=== PATIENT | female | born 1970 | race Caucasian/White ===

== ENCOUNTER 2016-12-19 23:59 | Inpatient (IN) | payer MEDICAID ==
--- NOTE | ~2016-12-19 | CT71 ---
[facility] A Service [facility] RADIOLOGY TEXT RESULTS PATIENT: AILYN ALFONSO LOCATION: [facility] PC 323-01 : 71 UNIT #: [id number] AGE: [address]: Aida Hu MD SEX: F ORDER DR: [id number] [facility] [address] [facility] [place] [facility]. [place], [place] [address] [id number] MR#: [id number] #: [id number] NAME: AILYN ALFONSO : 1970 SEX: F STUDY DATE/TIME: 12/20/2016 4:04 UNIT: CEDOF ROOM: 52333 STUDY DESCRIPTION: CT Head Wo Contrast Attending Physician: Aida Hu M.D. Ordering Physician: James Rivera D.O. Primary Care Physician: Primary Care Physician No MEDICAL IMAGING REPORT This report is preliminary unless electronic signature is present EXAM CT head, noncontrast, 12/20/2016 HISTORY 45-year-old female in the ED complaining of 1-day history of headaches, weakness and mental status changes. TECHNIQUE CT examination of the head without IV contrast. This CT examination was performed with one or more of the following radiation dose reduction techniques: automatic exposure control, adjustment of mA and/or kV according to patient size, and iterative reconstruction. FINDINGS The examination is negative. No evidence of acute intracranial hemorrhage, mass, mass effect, cerebral edema or hydrocephalus. At least mild mucosal thickening in the ethmoid and maxillary sinuses bilaterally. IMPRESSION Negative head CT examination. Dictated by... Delbert Smith M.D. THIS IS AN ELECTRONICALLY VERIFIED REPORT Delbert Smith M.D. at 12/20/2016 9:54 PM ROSA M/noreen TD: 12/20/2016 08:05 JOB #: [id number] MEDICAL IMAGING REPORT [facility] A Service [facility] RADIOLOGY TEXT RESULTS PATIENT: AILYN ALFONSO LOCATION: C3A 323-01 : 71 UNIT #: [id number] AGE: [address]: Aida Hu MD SEX: F ORDER DR: Page 1 of 1 COPY
--- NOTE | ~2016-12-19 | DS ---
Unit #: [id number] #: [id number] Patient: AILYN ALFONSO [id number] [address] [address] [id number] I MR#: [id number] NAME: AILYN ALFONSO ROOM: 323 Age: 45 Sex: F Admission Date: 12/20/2016 : 1970 Discharge Date: 12/21/2016 Attending Physician: Aida Hu M.D. Primary Care Physician: No Primary Care Physician DISCHARGE SUMMARY DISCHARGE DIAGNOSES 1. Acute kidney injury, prerenal. 2. Change in mental status secondary to metabolic encephalopathy from drug overdose. 3. Drug overdose, not intentional, with urine tox screen positive for amphetamines and opiates. 4. Hyperlipidemia. 5. Gram negative mikey urinary tract infection. 6. Hypertension, uncontrolled, most likely secondary to withdrawal. 7. History of questionable schizophrenia. 8. No suicidal ideation. CONSULTANTS Dr. Gramajo. PROCEDURES PREFORMED None. DIAGNOSTIC DATA LABORATORY: Urine culture showing Gram negative rods. Sodium 136, potassium 3.1, creatinine 0.8, AST 43, ALT 19, alkaline phosphatase 71, magnesium 1.7, white blood cell count 13.8, hemoglobin 15.0, platelets 111. Urine drug screen positive for opiates and amphetamines. Influenza A and B negative. ALLERGIES Penicillin. DISCHARGE MEDICATIONS 1. Neurontin 300 mg t.i.d. for 7 days for opiate withdrawal as per Dr. Gramajo's recommendation. 2. Clonidine 0.1 mg p.o. b.i.d. 3. Nitrofurantoin 100 mg p.o. b.i.d. HOSPITAL COURSE The patient is a 44-year-old admitted because of drug overdose. Polysubstance abuse: Amphetamines and heroin snorting. Came in with overdose with change in mental status. Currently she is withdrawing. She was started on Neurontin, trazodone, Vistaril and Requip by Dr. Gramajo. Currently she is eating. She wants to go home. The patient will be discharged on Neurontin for seven more days as per Dr. Gramajo's recommendations. [facility]. The patient understands the recommendations. Unit #: [id number] #: [id number] Patient: AILYN ALFONSO Acute kidney injury secondary to poor p.o. intake and drug abuse: The patient received IV fluids. Creatinine normal. Hypokalemia: Replaced with p.o. potassium. Hypermagnesemia: Replaced with p.o. magnesium. Gram negative mikey urinary tract infection: Cultures pending. Continue with nitrofurantoin for three days. Hypertension: Uncontrolled secondary to withdrawal. I added clonidine. I gave a prescription. The patient did receive hydralazine during hospitalization course. DISPOSITION Discharge home. FOLLOWUP 1. Follow up with family physician in one week time. 2. Follow up with [facility] outpatient within a week for heroin abuse and withdrawal. Dictated by... Raul Goodman/magda TD: 12/21/2016 11:36 JOB #: [id number] DISCHARGE SUMMARY Page 1 of 1 X Aida Hu MD X DISCHARGE SUMMARY
--- NOTE | ~2016-12-19 | HP ---
Unit #: [id number] #: [id number] Patient: AILYN ALFONSO [id number] [address] [address] [id number] I MR#: [id number] NAME: AILYN ALFONSO ROOM: 323 Age: 45 Sex: F Admission Date: 12/20/2016 : 1970 Attending Physician: Aida Hu M.D. Primary Care Physician: No Primary Care Physician HISTORY AND PHYSICAL CHIEF COMPLAINT Change in mental status. HISTORY OF PRESENT ILLNESS The patient is a 45-year-old admitted because of change in mental status. She was brought by her initially. She is lethargic and not able to provide history. Currently she is awake and oriented and explaining that she took heroin by snorting. She never used IV. Also, she might have taken amphetamines. I guess she was having change in mental status and was brought by her boyfriend. She is complaining of cough. No chest pain. She has nausea, no vomiting. No diarrhea. She has abdominal pain and generalized body pains from withdrawal. No leg swelling. No skin rash. PAST MEDICAL HISTORY 1. History of hypertension. 2. History of questionable schizophrenia which has not been confirmed. PAST SURGICAL HISTORY None. SOCIAL HISTORY Positive for smoking one pack of cigarettes per day. No alcohol. Uses heroin and amphetamines. FAMILY HISTORY Positive for hypertension. ALLERGIES None listed. CURRENT HOME MEDICATIONS Clonidine, dose to be obtained by her pharmacy. REVIEW OF SYSTEMS Currently complaining of headache and generalized body pains. Has nausea. No vomiting. Has abdominal pain. Mild diarrhea. No leg swelling. No skin rash. Complaining of dizziness. No weakness, numbness or tingling. Review of twelve point systems which are negative except as per history of present illness. PHYSICAL EXAMINATION GENERAL: The patient is a 45-year-old lying in bed, alert, arousable, oriented times 3. Unit #: [id number] #: [id number] Patient: AILYN ALFONSO VITALS: Temperature 98.3, pulse 125, respiratory rate 20, blood pressure 148/90. HEENT: Pupils equal and reactive to light and accommodation. Dry mucosa present. NECK: Supple. LUNGS: Occasional rhonchi present. Decreased breath sounds. HEART: S1 and S2. Regular rhythm. Tachycardia present. ABDOMEN: Soft and nontender. Bowel sounds present. EXTREMITIES: No pedal edema. SKIN: No rash. NEUROLOGIC: Moving all extremities. DIAGNOSTIC STUDIES IMAGING: Chest x-ray is negative. CAT scan of the head negative. LABORATORY: Influenza A and B negative. White blood cell count 22.3, hemoglobin 19.3, platelets 222. Sodium 136, potassium 3.2, creatinine 1.7, AST 28, ALT 22, alkaline phosphatase 103, total bilirubin 2.8, albumin 4.9. Urinalysis shows 1+ leukocyte esterase, 1+ protein, 1+ blood. Urine drug screen positive for amphetamines and opiates. ASSESSMENT/PLAN The patient is a 45-year-old admitted because of change in mental status. 1. Change in mental status with metabolic encephalopathy secondary to drug overdose. Currently she is alert and oriented. Monitor closely for withdrawal. 2. Acute kidney injury, most likely secondary to prerenal and poor p.o. intake. Continue with IV fluids. 3. Hemoconcentration and dehydration secondary to poor p.o. intake. Continue with IV fluids and monitor. 4. Urinary tract infection. Wait for cultures. I will start her on Levaquin 500 mg IV daily. 5. Hypertension. Currently uncontrolled. Start her on clonidine. 6. Questionable suicidal ideation in the emergency room. Currently she denies this. Currently she is on 72-hour hold and with a sitter. I am going to ask Dr. Gramajo to see. Dictated by Raul Goodman/magda TD: 12/20/2016 15:57 JOB #: [id number] Unit #: [id number] #: [id number] Patient: AILYN ALFONSO HISTORY AND PHYSICAL Page 1 of 1 X Aida Hu MD X HISTORY AND PHYSICAL
--- NOTE | ~2016-12-19 | CO ---
Unit #: [id number] #: [id number] Patient: ANALI ROSAS [id number] [facility] [address] [place], [place] [address] [id number] I MR#: [id number] NAME: ANALI ROSAS ROOM: 323 Age: 45 Sex: F Admission Date: 12/20/2016 : 1970 Attending Physician: Aida Hu M.D. Consultation Date: 12/20/2016 CONSULTATION REPORT REASON FOR CONSULTATION Opioid abuse and withdrawals, anxiety, depression. HISTORY OF PRESENT ILLNESS Ms. Anali Rosas is a 45-year-old female, seen on 12/20/2016 at [facility]. The patient was admitted on 12/20/2016 with a change in mental status. The patient was lethargic upon admission. The patient reported she took heroin by snorting, but denied any IV drug use. The patient reported that she has a history of amphetamine use also. The patient currently denied any suicidal or homicidal ideation. Denied any psychotic symptom, but reported feeling anxious, nervous, body ache, withdrawals, restlessness of her legs, mood lability, severe anxiety, trouble sleeping. The patient at this time, denied any auditory or visual hallucination or any psychotic symptom. PAST PSYCHIATRIC HISTORY Remarkable for history of depression and anxiety. No history of any inpatient treatment known at this time. The patient was assessed at [facility] in 2009. PAST MEDICAL HISTORY Remarkable for history of hypertension. MEDICATIONS Clonidine. ALLERGIES None. FAMILY HISTORY AND SOCIAL HISTORY The patient reports that she has a good support system. No history of any abuse. Denied any use of alcohol or any other drugs except for heroin. REVIEW OF SYSTEMS Complete review of systems is remarkable for restlessness of her legs, severe anxiety, agitation. MENTAL STATUS EXAMINATION General appearance, the patient dressed casually. Attention span and concentration, fair. Oriented in place and person. Mood and affect were sad and dysphoric. Speech, monotone. Thought process, coherent. Thought content, the patient denied any thoughts of harming self or others, but guarded. Recent and remote memory, fair. The patient initially was confused, but getting better. Language, able to name object, repeat Unit #: [id number] #: [id number] Patient: ANALI ROSAS phraseradha. Fund of knowledge, fair. Insight and judgment, fair to slightly impaired. DIAGNOSES Psychiatric: Opioid use disorder, severe, F11.20; delirium, resolving, F05. Secondary diagnosis: Deferred. Medical diagnosis: Acute kidney injury, change in mental status secondary to metabolic encephalopathy, drug overdose unintentional, hyperlipidemia, gram-negative mikey, urinary tract infection, history of hypertension. Stressors: Psychosocial stressors. ASSESSMENT AND PLAN 1. Supportive psychotherapy and psychoeducation provided to the patient. 2. Educated about benefits and side effects of medication and course and prognosis of illness. 3. The patient was advised Neurontin 300 mg t.i.d., Vistaril 50 mg t.i.d., and trazodone 50 mg q.h.s. p.r.n. for sleep, Requip 1 mg b.i.d. The patient was advised to follow up after this at [facility] CD-IOP program. The patient was given information. Please feel free to call if any questions telephone #[phone]. Dictated by... Raul Cox/gt TD: 12/24/2016 00:40 JOB #: [id number] CONSULTATION REPORT Page 1 of 1 X Bennie Gramajo MD X CONSULTATION REPORT
--- NOTE | ~2016-12-19 | CR72 ---
[facility] A Service of [facility] RADIOLOGY TEXT RESULTS PATIENT: AILYN ALFONSO LOCATION: [facility] 323-01 : 71 UNIT #: [id number] AGE: [address]: Aida Hu MD SEX: F ORDER DR: [id number] [facility] [address] [facility]. [place], [place] [address] [id number] MR#: [id number] #: [id number] NAME: AILYN ALFONSO : 1970 SEX: F STUDY DATE/TIME: 12/19/2016 23:51 UNIT: [facility] ROOM: STUDY DESCRIPTION: CR Chest Single View Portable Attending Physician: James Rivera D.O. Ordering Physician: James Rivera D.O. Primary Care Physician: No Primary Care Physician MEDICAL IMAGING REPORT This report is preliminary unless electronic signature is present EXAM AP portable chest 12/19/2016 HISTORY 45-year-old female in the ED complaining of 2-week history of cough, fever, flu-like symptoms. TECHNIQUE AP portable chest x-ray. FINDINGS The examination is negative. The lungs are expanded and clear. No visible pulmonary infiltrate or pleural effusion. IMPRESSION Negative chest. Dictated by... Delbert Smith M.D. THIS IS AN ELECTRONICALLY VERIFIED REPORT Delbert Smith M.D. at 12/20/2016 9:53 PM FLORYW/jody TD: 12/20/2016 06:59 JOB #: [id number] MEDICAL IMAGING REPORT Page 1 of 1 COPY
[~2016-12-19 23:59] MED LIST: MACROBID100 MG PO; PHENERGAN SUPP25 M1 PR; PHENERGAN25 MG PO
[2016-12-20 00:46] LABS: BASOPHIL# 0.1 X10e3 (0-0.3); BASOPHIL% 0.4 % (0-2.5); DIFF IND YES; HEMOGLOBIN 19.3 gm/dL (12.0-16.0); LYMPHOCYTE# 2.6 X10e3 (1.0-3.5); LYMPHOCYTE% 11.6 % (17.0-45.0); MEAN CELL VOLUME 85.8 FL (83-96); MEAN CORPUSCULAR HEMOGLOBIN 28.5 PG (28-34); MEAN CORPUSCULAR HGB CONC 33.2 g/dL (30-36); MEAN PLATELET VOLUME 8.7 FL (6.5-11.5); MONOCYTE# 1.9 X10e3 (0-1.0); MONOCYTE% 8.5 % (3.0-12.0); NEUTROPHIL# 17.7 X10e3 (1.5-7.1); NEUTROPHIL% 79.5 % (40-75); PLATELET COUNT 222 X10e3 (140-420); RED BLOOD COUNT 6.76 X10e (3.90-5.30); RED CELL DISTRIBUTION WIDTH 14.3 % (11.0-15.5); WHITE BLOOD COUNT 22.3 X10e3 (4.0-10.5)
[2016-12-20 00:56] LABS: INFLUENZA A NEG (NEG); INFLUENZA B NEG (NEG)
[2016-12-20 00:58] LABS: PLATELET ESTIMATE NORMAL (NORMAL)
[2016-12-20 00:59] LABS: RBC NORMAL YES
[2016-12-20 01:13] LABS: ALBUMIN SERUM 4.9 g/dL (3.5-5.0); ALKALINE PHOSPHATASE 103 U/L (32-92); ALT (SGPT) 22 U/L (10-40); AST (SGOT) 28 U/L (10-42); BILIRUBIN, DIRECT 0.4 mg/dL (0.0-0.2); BILIRUBIN,INDIRECT 2.4 mg/dL (0.0-0.9); BILIRUBIN,TOTAL 2.8 mg/dL (0.2-2.0); BLOOD UREA NITROGEN 31 mg/dL (9-23); BUN/CREATININE RATIO 18.23; CALCIUM SERUM 9.9 mg/dL (8.4-10.2); CARBON DIOXIDE 22 mmol/L (22-31); CHLORIDE 96 mmol/L (100-111); CREATININE SERUM 1.7 mg/dL (0.6-1.4); GLOM FILT RATE Estimated 34.7 mL/min (>60); GLUCOSE FASTING 97 mg/dL (70-110); POTASSIUM 3.2 mmol/L (3.5-5.1); PROTEIN TOTAL SERUM 9.1 g/dL (6.0-8.3); SALICYLATE <4.0 mg/dL; SODIUM 136 mmol/L (135-145)
[2016-12-20 01:16] LABS: ACETAMINOPHEN <10 ug/mL; ALCOHOL BLOOD <5 mg/dL (0)
[2016-12-20 01:20] LABS: POC - CKMB 2.6 ng/mL (0.0-7.9); POC - TROPONIN <0.05 ng/mL (<=0.05)
[2016-12-20 01:28] LABS: URINE SOURCE CLEAN CATCH
[2016-12-20 01:41] LABS: URINE APPEARANCE TURBID; URINE BILIRUBIN NEG (NEG); URINE BLOOD 1+ (NEG); URINE COLOR YELLOW; URINE GLUCOSE NEG (NEG); URINE KETONE TRACE (NEG); URINE LEUKOCYTE ESTERASE 1+ (NEG); URINE NITRATE POS (NEG); URINE PROTEIN 1+ (NEG); URINE UROBILINOGEN 0.2 MG/DL (NEG)
[2016-12-20 01:44] LABS: CULTURE INDICATED? YES; URBCS1 AUWI 0-2 /[HPF] (0-2); URINE SQUAMOUS EPITHELIAL CELL MANY /[HPF]; UWBCS1 AUWI 0-2 (0-5)
[2016-12-20 01:56] LABS: AMPHETAMINE POS (NEG); BARBITURATES NEG (NEG); BENZODIAZEPINES NEG (NEG); COCAINE NEG (NEG); MARIJUANA NEG (NEG); OPIATES POS (NEG); TRICYCLIC ANTIDEPRESSANTS NEG (NEG); U METHADONE NEG (NEG)
[2016-12-20] MEDS ORDERED: NO MEDICATIONS (08:57)
[2016-12-21 06:24] LABS: HEMATOCRIT 45.7 % (35.0-45.0); MEAN CELL VOLUME 86.8 FL (83-96); MEAN CORPUSCULAR HEMOGLOBIN 28.5 PG (28-34); MEAN CORPUSCULAR HGB CONC 32.9 g/dL (30-36); RED BLOOD COUNT 5.26 X10e (3.90-5.30); RED CELL DISTRIBUTION WIDTH 14.3 % (11.0-15.5); WHITE BLOOD COUNT 13.8 X10e3 (4.0-10.5)
[2016-12-21 06:55] LABS: ALBUMIN SERUM 3.5 g/dL (3.5-5.0); BILIRUBIN,TOTAL 3.2 mg/dL (0.2-2.0); CALCIUM SERUM 8.4 mg/dL (8.4-10.2); CREATININE SERUM 0.8 mg/dL (0.6-1.4); GLOM FILT RATE Estimated 89.7 mL/min (>60); MAGNESIUM 1.7 mg/dL (1.6-3.0); POTASSIUM 3.1 mmol/L (3.5-5.1); PROTEIN TOTAL SERUM 6.5 g/dL (6.0-8.3)
== END 2016-12-21 15:10 | disposition left against medical advice (07) | DRG 917 ==
LOC: CED 23:59 → CEDOF 12-20 06:23 → C3A PCU 12-20 13:54
PROVIDERS: Emergency Medicine; Internal Medicine
DX: T50.901A Poisoning by unspecified drugs, medicaments and biological substances, accidental (unintentional), initial encounter (principal); G93.41 Metabolic encephalopathy; N17.9 Acute kidney failure, unspecified; F05 Delirium due to known physiological condition; N39.0 Urinary tract infection, site not specified; F11.23 Opioid dependence with withdrawal; R41.82 Altered mental status, unspecified; E86.0 Dehydration; I10 Essential (primary) hypertension; F41.9 Anxiety disorder, unspecified; F32.9 Major depressive disorder, single episode, unspecified; E78.5 Hyperlipidemia, unspecified; Z88.0 Allergy status to penicillin
CPT/HCPCS: 70450; 71010; 80048; 80053; 80076; 80307; 81003; 82553; 83735; 84484; 84703; 85025; 85027; 87040; 87086; 87088; 87186; 87804; 99285; G0480; J0360; J1956